=== PATIENT | female | born 1945 | race Caucasian/White ===

== ENCOUNTER → 2020-06-07 16:52 | Outpatient (CLI) | payer SELFPAY ==
[2020-06-07 17:11] LABS: HEMATOCRIT 36.7 % (36.0-48.0); HEMOGLOBIN 11.5 g/dL (12-16); LYMPHOCYTE ABS# 1.09 10x3/uL (1.18-3.74); MCH 27.3 pg (26.0-34.0); MCHC 31.3 g/dL (31.0-37.0); MEAN PLATELET VOLUME 12.7 fL (7.4-10.4); NEUTROPHIL ABS# 2.77 10x3/uL (1.56-6.13); PLATELET COUNT 249 10x3/uL (130-400); RBC 4.22 10x6/uL (4.00-5.40); RDW 15.8 % (11.5-14.5); WBC 4.3 10x3/uL (4.8-10.8)
[2020-06-07 17:37] LABS: EOSINOPHILS 6 % (0-7); LYMPHOCYTES 40 % (15-50); MONOCYTES 3 % (2-11); NEUTROPHILS 48 % (40-80); PLATELET ESTIMATE NORMAL
[2020-06-07 17:52] LABS: ALBUMIN 3.1 g/dL (3.4-5.0); ANION GAP 14.6 mmol/L (8-16); BILIRUBIN - TOTAL 0.18 mg/dL (0.2-1.3); CALCIUM 8.2 mg/dL (8.5-10.1); CARBON DIOXIDE 23.5 mmol/L (21.0-32.0); CREATININE - SERUM 0.9 mg/dL (0.6-1.3); POTASSIUM - SERUM 4.1 mmol/L (3.5-5.1); PROTEIN - SERUM 6.2 g/dL (6.4-8.2); THYROID STIMULATING HORMONE 2.62 uIU/mL (0.36-3.74)
== END | disposition home or self-care (01) ==
LOC: EDBD 16:52 → D.LABREF 16:52
PROVIDERS: ATTEND Family Medicine
DX: E87.6 Hypokalemia (principal); I10 Essential (primary) hypertension; Z87.19 Personal history of other diseases of the digestive system

== ENCOUNTER → 2020-06-08 17:57 | Outpatient (CLI) | payer MEDICARE, MEDICAID ==
[2020-06-08 19:18] LABS: BILIRUBIN NEGATIVE (NEGATIVE); KETONE NEGATIVE (NEGATIVE); NITRITE NEGATIVE (NEGATIVE); UROBILINOGEN NORMAL mg/dL (< 2)
== END | disposition home or self-care (01) ==
LOC: D.LABREF 17:57
PROVIDERS: ATTEND Family Medicine
DX: R30.0 Dysuria (principal)

== ENCOUNTER → 2020-06-13 16:18 | Outpatient (CLI) | payer MEDICARE, MEDICAID | END | disposition home or self-care (01) | LOC: D.LABREF 16:18 | PROVIDERS: ATTEND Family Medicine | DX: R73.9 Hyperglycemia, unspecified (principal) ==

== ENCOUNTER → 2020-07-02 20:16 | Outpatient (CLI) | payer MEDICARE, MEDICAID ==
[2020-07-02 21:02] LABS: ANION GAP 12.9 mmol/L (8-16); CALCIUM 8.9 mg/dL (8.5-10.1); CARBON DIOXIDE 25.6 mmol/L (21.0-32.0); MAGNESIUM - SERUM 2.1 mg/dL (1.8-2.4); POTASSIUM - SERUM 4.5 mmol/L (3.5-5.1)
== END | disposition home or self-care (01) ==
LOC: D.LABREF 20:16
PROVIDERS: ATTEND Family Medicine
DX: F33.0 Major depressive disorder, recurrent, mild (principal); R25.2 Cramp and spasm

== ENCOUNTER → 2020-07-11 20:48 | Outpatient (CLI) | payer MEDICARE, MEDICAID ==
[2020-07-11 21:39] LABS: BASOPHILS 1.9 % (0-2); EOSINOPHILS 2.1 % (0-7); HEMATOCRIT 37.9 % (36.0-48.0); HEMOGLOBIN 12.1 g/dL (12-16); LYMPHOCYTES 24.4 % (15-50); MCH 26.6 pg (26.0-34.0); MCHC 31.8 g/dL (31.0-37.0); MCV 83.6 fL (80.0-100.0); MEAN PLATELET VOLUME 8.7 fL (7.4-10.4); MONOCYTES 5.6 % (2-11); RBC 4.54 10x6/uL (4.00-5.40); RDW 16.1 % (11.5-14.5); WBC 6.5 10x3/uL (4.8-10.8)
[2020-07-11 21:50] LABS: PLATELET COUNT 306 10x3/uL (130-400)
[2020-07-11 22:55] LABS: ERYTHROCYTE SEDIMENTATION RATE 23 mm/hr (0-30)
== END | disposition home or self-care (01) ==
LOC: D.LABREF 20:48
PROVIDERS: ATTEND Family Medicine
DX: R52 Pain, unspecified (principal)